=== PATIENT | female | born 1945 | race Caucasian/White ===

== ENCOUNTER 2016-09-12 07:35 | Day surgery (SDC) | payer OTHER ==
[2016-09-11 11:46] VITALS: BMI 22.8
--- NOTE | 2016-09-11 13:23 | PREOPHP ---
DATE OF ADMISSION: 09/12/2016 HISTORY OF PRESENT ILLNESS: This 70-year-old patient is admitted for elective cataract surgery of t he left eye. The patient has had progressive deterioration of vision for the past 5 years without a ny prior history of eye disease or injury. The patient does have a history of mild COPD and hyperch olesterolemia. CURRENT MEDICATIONS INCLUDE: 1. Advair. 2. Aspirin (discontinued 1 week prior to surgery). 3. Atorvastatin. ALLERGIES: THERE ARE NO KNOWN ALLERGIES. PHYSICAL EXAMINATION: The visual acuity best corrected is 20/70 in the right eye and 20/80 in the l eft eye. Slit lamp examination reveals nuclear sclerotic cataract with vacuolar changes in both eye s. Applanation tonometry is 17 mmHg. Examination of the retina appears within normal limits. DIAGNOSIS: Cataract, left eye. PLAN: Cataract extraction with lens implant, left eye. The risks and alternatives to the surgery h ave been discussed with the patient and the patient has opted to proceed with surgery in hopes of im proving visual acuity in the operated eye leading to a greater ability to perform activities of lesli y living. Dictated By: ORLANDO MOORE/GRECIA Conf#: [id number] DID#: [id number]
[2016-09-12] VITALS (9 sets, daily range): BP systolic 110–171; BP diastolic 56–70; PULSE 58–67; RESP 10–19; Ht 170.2 cm; Wt 65.9 kg
[~2016-09-12] VITALS: Ht 170.2 cm; Wt 65.9 kg
[~2016-09-12 07:35] MED LIST: ADV10050 INHALATION; ATOR20TA38 PO; CHOL20003 PO; IPRA12.93 INHALATION; MECL25TA2 PO
[2016-09-12] MEDS ORDERED: ASPI-664 PO (08:07)
[2016-09-12] MEDS ORDERED: CYCLOPENTOLATE/PHENYLEPH 2 ML OPH LEFT EYE SCH (08:30)
[2016-09-12] MEDS ORDERED: CIPROFLOXACIN 0.3% 2.5 ML OPH LEFT EYE SCH (08:30)
[2016-09-12] MEDS ORDERED: TROPICAMIDE 1% 2 ML OPH LEFT EYE SCH (08:30)
[2016-09-12] MEDS ORDERED: DICLOFENAC 0.1% 2.5 ML OPH LEFT EYE SCH (08:30)
[2016-09-12] MEDS ORDERED: CARBACHOL 0.01% 1.5 ML OPH INJ ONE (10:12)
[2016-09-12] MEDS ORDERED: LIDOCAINE 4% (MPF) 5 ML INJ ONE (10:12)
[2016-09-12] MEDS ORDERED: HYALURONATE/CHONDROITIN 1ML OPH INJ ONE (10:12)
[2016-09-12] MEDS ORDERED: DEXAMETHASONE 4 MG/ML 1 ML INJ ONE (10:12)
[2016-09-12] MEDS ORDERED: PROPOFOL 20 ML ONE (10:20)
[2016-09-12] MEDS ORDERED: HYDROmorphONE (0.2 MG/ML) 10ML SYG IV PRN ×3 (10:30)
[2016-09-12] MEDS ORDERED: METOCLOPRAMIDE 10 MG INJ IV PRN (10:30)
[2016-09-12] MEDS ORDERED: ONDANSETRON 4 MG INJ IV PRN (10:30)
[2016-09-12] MEDS ORDERED: FENTAnyl 50 MCG/ML VIAL ONE (10:38)
[2016-09-12] MEDS ORDERED: CEFAZOLIN 1 GM INJ INJ ONE (10:48)
[2016-09-12] MEDS ORDERED: ACETAMINOPHEN 1000MG/100ML IV 100 ML ONE (11:07)
--- NOTE | 2016-09-12 13:28 | OPR ---
DATE OF OPERATION: 09/12/2016 PREOPERATIVE DIAGNOSIS: Cataract, left eye. POSTOPERATIVE DIAGNOSIS: Cataract, left eye. SURGEON: Orlando Nur MD COOL ROOFING INSTALLER: ____ ANESTHESIA: Local standby. ANESTHESIOLOGIST: Dr. Liao OPERATION: Phacoemulsification with posterior chamber intraocular lens implant, left eye. PROCEDURE: The patient was brought to the operating room and placed on the table with an IV in plac e and the patient attached to an crisis therapist. Oxygen was given via face mask. After some intravenous sedation was administered, local anesthesia was given using Xylocaine 2% with epinephrine, mixed with Marcaine 0.5%. This was given in a lid block and retrobulbar injection. The patient was then prepped and draped in the usual sterile manner. A wire lid speculum was inserted between the lids of the left eye. A Superblade was used to enter th e anterior chamber at the corneoscleral limbus at the 10:30 o'clock position. A separate incision wa s made using a 3.0-mm keratome which entered the corneoscleral junction at the 12 o'clock position. Through this 3-mm opening, an irrigating cystitome was introduced into the anterior chamber. The [place] mber was filled with Viscoat and an anterior capsulotomy was performed. Balanced salt solution was t hen used for hydrodissection of the lens. A phacoemulsification handpiece was then brought into the field and introduced into the anterior chamber. The lens nucleus was emulsified using a deep groove and cracking the nucleus into quadrants. The lens nucleus was noted to be of greater density than a verage, and therefore, a higher ultrasonic setting was used to remove the lens nucleus. Following t his, each quadrant was aspirated and emulsified at the pupillary margin. After this was completed, the irrigation/aspiration handpiece was brought to the field, introduced i nto the posterior chamber, and the lens cortical material was removed. When this was completed, shira tional Viscoat was injected into the anterior and posterior chambers. The 3-mm opening had its internal lips enlarged, and then the posterior chamber intraocular lens raad suring 16.5 diopters (Bausch and Lomb Model LI61AO) was then injected into the posterior chamber usi ng the lens injector system. After the leading haptic was introduced into the capsular bag and the l ens optic was present in the center of the eye, the injector was removed and the trailing haptic was grasped with non-toothed forceps and introduced into the capsular fold superiorly. A Sinskey hook w as then used to rotate the intraocular lens so that the lips were oriented in the horizontal meridia n. One 10-0 nylon suture was placed across the wound. Prior to tying, the irrigation/aspiration handpiece was reintroduced into the anterior chamber to re move the Viscoat. Miochol was instilled to constrict the pupil, and then the 10-0 nylon suture was t ied. The ends were cut short and then the knot was buried. Then, 0.5 mL of dexamethasone and 0.5 mL of Ancef were injected into the sub-Tenon space in the infe rior fornix. Ciloxan drops were then placed on the surface of the eye. The speculum was removed and a patch was applied. The patient then left the operating room in satisfactory condition. Dictated By: ORLANDO MOORE/GRECIA Conf#: [id number] DID#: [id number]
== END 2016-09-12 13:49 | disposition home or self-care (01) ==
LOC: SDS 07:35
PROVIDERS: ATTEND Ophthalmology
DX: H25.12 Age-related nuclear cataract, left eye (principal); J44.9 Chronic obstructive pulmonary disease, unspecified; E78.5 Hyperlipidemia, unspecified; Z87.891 Personal history of nicotine dependence
CPT/HCPCS: 66984; J0131; J0690; J1100; J2405; J3010; V2632; Z7512; Z7610

== ENCOUNTER 2017-01-16 07:15 | Day surgery (SDC) | payer OTHER ==
--- NOTE | 2017-01-15 11:31 | PREOPHP ---
DATE OF ADMISSION: 01/16/2017 HISTORY OF PRESENT ILLNESS: This 71-year-old patient is admitted for elective cataract surgery of t he right eye. The patient has previously had progressive deterioration of vision in both eyes for a pproximately 5 to 6 years and 1 year ago underwent cataract surgery of the left eye. No other histo ry of eye disease or injury. The patient has a history of mild COPD and hypercholesterolemia. CURRENT MEDICATIONS INCLUDE: 1. Advair. 2. Aspirin (discontinued 1 week prior to surgery). 3. Atorvastatin. ALLERGIES: THERE ARE NO KNOWN ALLERGIES. PHYSICAL EXAMINATION: The visual acuity best corrected is 20/70 in the right eye and 20/30 in the l eft eye. Slit lamp examination reveals nuclear sclerotic cataract with vacuolar changes in the righ t eye. The left eye has a posterior chamber intraocular lens in appropriate position. Applanation tonometry is 15 mmHg. Examination of the retina is within normal limits. DIAGNOSIS: Cataract, right eye. PLAN: Cataract extraction with lens implant, right eye. The risks and alternatives to the surgery have been discussed with the patient and the patient has opted to proceed with surgery in hopes of o btaining better improved visual acuity leading to a greater ability to perform activities of daily l iving. Dictated By: ORLANDO MOORE/GRECIA Conf#: [id number] DID#: [id number]
[2017-01-16] VITALS (8 sets, daily range): BP systolic 129–160; BP diastolic 69–78; PULSE 58–66; RESP 16–18; Ht 170.2 cm; Wt 67.3 kg
[~2017-01-16] VITALS: Ht 170.2 cm; Wt 67.3 kg
[~2017-01-16 07:15] MED LIST changes: +ASPI-664 PO; +CIPROFLOXACIN 0.3% 2.5 ML OPH OPER SCH; +CYCLOPENTOLATE/PHENYLEPH 2 ML OPH OPER SCH; +DICLOFENAC 0.1% 2.5 ML OPH OPER SCH; -MECL25TA2 PO; +TROPICAMIDE 1% 2 ML OPH OPER SCH
[2017-01-16] MEDS ORDERED: DICLOFENAC 0.1% 2.5 ML OPH OPER SCH (07:30)
[2017-01-16] MEDS ORDERED: CIPROFLOXACIN 0.3% 2.5 ML OPH OPER SCH (07:30)
[2017-01-16] MEDS ORDERED: TROPICAMIDE 1% 2 ML OPH OPER SCH (07:30)
[2017-01-16] MEDS ORDERED: CYCLOPENTOLATE/PHENYLEPH 2 ML OPH OPER SCH (07:30)
[2017-01-16] MEDS ORDERED: CARBACHOL 0.01% 1.5 ML OPH INJ IO ONE (08:21)
[2017-01-16] MEDS ORDERED: HYALURONATE/CHONDROITIN 1ML OPH INJ IO ONE (08:21)
[2017-01-16] MEDS ORDERED: CEFAZOLIN 1 GM INJ INJ ONE (08:21)
[2017-01-16] MEDS ORDERED: DEXAMETHASONE 4 MG/ML 1 ML INJ INJ ONE (08:21)
[2017-01-16] MEDS ORDERED: LIDOCAINE 4% (MPF) 5 ML INJ ONE (08:33)
[2017-01-16] MEDS ORDERED: GENTAMICIN 80 MG INJ ONE (08:33)
[2017-01-16] MEDS ORDERED: EPINEPHrine 1 MG INJ ONE (08:33)
[2017-01-16] MEDS ORDERED: DEXAMETHASONE 4 MG/ML 1 ML INJ ONE (08:33)
[2017-01-16] MEDS ORDERED: CEFAZOLIN 1 GM INJ ONE (08:33)
[2017-01-16] MEDS ORDERED: CARBACHOL 0.01% 1.5 ML OPH INJ ONE (08:33)
[2017-01-16] MEDS ORDERED: HYALURONATE/CHONDROITIN 1ML OPH INJ ONE (08:33)
[2017-01-16] MEDS ORDERED: PROPOFOL 20 ML ONE (08:56)
[2017-01-16] MEDS ORDERED: hydrALAzine 20 MG INJ IV PRN (09:30)
[2017-01-16] MEDS ORDERED: LABETALOL HCL 20MG INJ IV PRN (09:30)
[2017-01-16] MEDS ORDERED: MEPERIDINE 25 MG INJ IV PRN (09:30)
[2017-01-16] MEDS ORDERED: ONDANSETRON 4 MG INJ IV PRN (09:30)
[2017-01-16] MEDS ORDERED: HYDROmorphONE (0.2 MG/ML) 10ML SYG IV PRN ×3 (09:30)
[2017-01-16] MEDS ORDERED: FENTAnyl 50 MCG/ML VIAL IV PRN ×2 (09:30)
--- NOTE | 2017-01-16 10:11 | OPR ---
DATE OF OPERATION: PREOPERATIVE DIAGNOSIS: Cataract, right eye. POSTOPERATIVE DIAGNOSIS: Cataract, right eye. OPERATION PERFORMED: Cataract extraction with lens implant, right eye. SURGEON: Orlando Nur MD ANESTHESIA: Local standby. ANESTHESIOLOGIST: Dr. Alvarez OPERATION: Phacoemulsification with posterior chamber intraocular lens implant, right eye. PROCEDURE: The patient was brought to the operating room and placed on the table with an IV in plac e and the patient attached to an licensing worker. Oxygen was given via face mask. After some intravenous sedation was administered, local anesthesia was given using Xylocaine 2% with epinephrine, mixed with Marcaine 0.5%. This was given in a lid block and retrobulbar injection. The patient was then prepped and draped in the usual sterile manner. A wire lid speculum was inserted between the lids of the right eye. A Superblade was used to enter t he anterior chamber at the corneoscleral limbus at the 10:30 o'clock position. A separate incision w as made using a 3.0-mm keratome which entered the corneoscleral junction at the 12 o'clock position. Through this 3-mm opening, an irrigating cystotome was introduced into the anterior chamber. The ch margie was filled with Viscoat and an anterior capsulotomy was performed. Balanced salt solution was then used for hydrodissection of the lens. A phacoemulsification handpiece was then brought into th e field and introduced into the anterior chamber. The lens nucleus was emulsified using a deep groov e and cracking the nucleus into quadrants. Following this, each quadrant was aspirated and emulsifie d at the pupillary margin. After this was completed, the irrigation/aspiration handpiece was brought to the field, introduced i nto the posterior chamber, and the lens cortical material was removed. When this was completed, shira tional Viscoat was injected into the anterior and posterior chambers. The 3-mm opening had its internal lips enlarged, and then the posterior chamber intraocular lens raad suring 15.5 diopters (Bausch and Lomb model LI61AO) was then injected into the posterior chamber usi ng the lens injector system. After the leading haptic was introduced into the capsular bag and the l ens optic was present in the center of the eye, the injector was removed and the trailing haptic was grasped with non-toothed forceps and introduced into the capsular fold superiorly. A Sinskey hook w as then used to rotate the intraocular lens so that the lips were oriented in the horizontal meridia n. One 10-0 nylon suture was placed across the wound. Prior to tying, the irrigation/aspiration handpiece was reintroduced into the anterior chamber to re move the Viscoat. Miochol was instilled to constrict the pupil, and then the 10-0 nylon suture was t ied. The ends were cut short and then the knot was buried. Then, 0.5 mL of dexamethasone and 0.5 mL of Ancef were injected into the sub-Tenon space in the infe rior fornix. Ciloxan drops were then placed on the surface of the eye. The speculum was removed and a patch was applied. The patient then left the operating room in satisfactory condition. Dictated By: ORLANDO MOORE/GRECIA Conf#: [id number] DID#: [id number]
--- NOTE | 2017-01-16 16:00 | RADRPT ---
Vent Rate: 54 bpm RR Interval: 0 msec KS Interval: 170 msec QRS Duration: 90 msec QT Interval: 464 msec QTC Interval: 440 msec P-R-T Nash: 66 - 66 - 66 degrees Sinus bradycardia Otherwise normal ECG Electronically Signed By: Robert Loyola [id number]
== END 2017-01-16 10:45 | disposition home or self-care (01) ==
LOC: SDS 07:15
PROVIDERS: ATTEND Ophthalmology
DX: H26.9 Unspecified cataract (principal); E78.5 Hyperlipidemia, unspecified; J44.9 Chronic obstructive pulmonary disease, unspecified; Z87.891 Personal history of nicotine dependence
CPT/HCPCS: 66984; 93005; J0171; J0690; J1100; J1580; V2632; Z7512; Z7610